=== PATIENT | female | born 1985 | race Caucasian/White ===

== ENCOUNTER 2016-08-15 20:59 | Emergency (ER) ==
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
[2016-08-15] MEDS ORDERED: MOTRIN PO ONE (22:33)
[2016-08-15] MEDS ORDERED: FLEXERIL PO ONE (22:33)
[2016-08-15 23:06] VITALS: BP 125/80
--- NOTE | 2016-08-16 11:43 | Diag Imaging Result Document ---
PROCEDURE NAME: CERVICAL SPINE W/O CONTRAST - 08/15/2016 CT OF THE CERVICAL SPINE: FINDINGS: There is some fluid in some of the mastoid air cells on the right side. There is no evidence of fracture or subluxation. No prevertebral soft-tissue swelling is present. There are some prominent cervical nodes present particularly in the spinal accessory chain on the right. None exceeds 5 mm in short axis dimension, however. There is some curvature of the cervical spine with convexity to the right. There is no evidence of acute fracture or subluxation. The facets appear to be well aligned. IMPRESSION: No evidence of acute bony disease.
== END 2016-08-15 23:04 | disposition home or self-care (01) ==
LOC: ED 20:59
DX: S16.1XXA Strain of muscle, fascia and tendon at neck level, initial encounter (principal); R07.89 Other chest pain; S40.012A Contusion of left shoulder, initial encounter; S90.02XA Contusion of left ankle, initial encounter; M25.512 Pain in left shoulder; H55.00 Unspecified nystagmus; R00.0 Tachycardia, unspecified; K21.9 Gastro-esophageal reflux disease without esophagitis; V89.2XXA Person injured in unspecified motor-vehicle accident, traffic, initial encounter
CPT/HCPCS: 72125